=== PATIENT | male | born 2000 | race Hispanic/Latino ===

== ENCOUNTER 2023-10-08 18:55 | Emergency (ER) | payer MEDICAID, OTHER ==
[~2023-10-08] VITALS: Ht 180.3 cm; Wt 124.7 kg
[2023-10-08 21:37] VITALS: BP 151/90; PULSE 100; RESP 20; O2SAT 99
[2023-10-08] MEDS ORDERED: FAMC500T8 PO (21:39)
[2023-10-08] MEDS ORDERED: CIPOTIC AD (21:39)
[2023-10-08] MEDS ORDERED: PRED20TA3 PO (21:39)
== END 2023-10-08 21:51 | disposition home or self-care (01) ==
LOC: EDH 18:55
DX: H92.01 Otalgia, right ear (principal); R29.810 Facial weakness